=== PATIENT | female | born 1985 | race Hispanic/Latino ===

== ENCOUNTER 2023-12-25 07:00 | Inpatient (IN) | payer OTHER, SELFPAY ==
--- NOTE | 2023-12-25 08:00 | RAD REPORT ---
EXAM DESCRIPTION: RAD - Chest Single View - 12/25/2023 7:48 am CLINICAL HISTORY: DYSPNEA Chest pain. COMPARISON: No comparisons FINDINGS: Portable technique limits examination quality. Interstitial markings are mildly prominent which may indicate viral infection or mild interstitial pu lmonary edema. The heart is upper limit of normal in size. No displaced fractures.
[2023-12-25] MEDS ORDERED: AMLODIPINE 10 MG TAB ONE (08:03)
[2023-12-25 08:08] LABS: Absolute Basophils 0.1 K/uL (0-0.5); Absolute Eosinophils 0.1 K/uL (0-0.5); Absolute Lymphocytes (CBC) 2.6 K/uL (0.7-4.9); Absolute Monocytes 0.8 K/uL (0.1-1.3); Absolute Neutrophil 8.3 K/uL (1.8-8.0); Basophils % 0.5 % (0-1.3); Eosinophils % 1.1 % (0-4.4); Hematocrit 32.8 % (36.0-45.0); Hemoglobin 10.3 g/dL (12.0-15.0); Lymphocytes % 21.8 % (15.3-44.8); MCH 26.3 pg (27.0-35.0); MCHC 31.4 g/dL (32.0-36.0); MCV 83.7 fL (80-100); MPV 7.8 fL (7.6-11.3); Monocytes % 6.4 % (3.3-12.3); Neutrophils % 70.2 % (41.7-73.7); Platelets 325 thou/uL (152-406); RBC Red Blood Cell Count 3.93 M/uL (3.86-4.86)
[2023-12-25 08:26] LABS: ALT/SGPT 28 U/L (13-56); AST/SGOT 22 U/L (15-37); Albumin/Globulin Ratio 0.8 (1.1-1.8); Alkaline Phosphatase 88 U/L (45-117); Anion Gap 7.6 mEq/L (5.0-15.0); BUN Blood Urea Nitrogen 14 mg/dL (7-18); Bicarbonate 29 mEq/L (21-32); Bilirubin Total 0.3 mg/dL (0.2-1.0); Glomerular Filtration Rate 91 ml/min (=/>90); Glucose Level 123 mg/dL (74-106); NT PRO-BNP 1043 pg/mL (<125); Potassium 3.6 mEq/L (3.5-5.1); Sodium Level 137 mEq/L (136-145); Troponin High Sensitivity 23.8 pg/mL (<58.9)
[2023-12-25 08:28] LABS: Bilirubin Direct < 0.2 mg/dL (0-0.2); Bilirubin Indirect, Calculated 0.1 mg/dL (0.2-0.8)
[2023-12-25] MEDS ORDERED: FUROSEMIDE 40 MG/4 ML VIAL ONE (08:38)
--- NOTE | 2023-12-25 08:52 | ER ---
Nurse's Notes [facility] Name: Robbi Alsotn Age: 38 yrs Sex: Female : 1985 Arrival Date: 12/25/2023 Time: 07:00 Bed 15 Private MD: Diagnosis: Unspecified combined systolic (congestive) and diastolic (congestive) heart failure;Essential (primary) hypertension;Acute pulmonary edema;Dyspnea, unspecified Presentation: 12/24 07:17 Chief complaint: Patient states: she has been having shortness of breath for three days ap3 with a headache. patient states that she has been having continued shortness of breath but only at night previously, however now it has been going on during day and night. Coronavirus screen: At this time, the client does not indicate any symptoms associated with coronavirus-19. Ebola Screen: No symptoms or risks identified at this time. Initial Sepsis Screen: Does the patient meet any 2 criteria? RR > 20 per min. Does the patient have a suspected source of infection? No. Patient's initial sepsis screen is negative. Risk Assessment: Do you want to hurt yourself or someone else? Patient reports no desire to harm self or others. Onset of symptoms is unknown. 07:17 Method Of Arrival: Ambulatory ap3 07:17 Acuity: INDY 2 ap3 Triage Assessment: 07:23 General: Appears comfortable, Behavior is calm, cooperative, appropriate for age. Pain: ap3 Denies pain. Neuro: Level of Consciousness is awake, alert, obeys commands, Oriented to person, place, time, situation, Appropriate for age Speech is normal. Neuro: Reports headache. Cardiovascular: Patient's skin is warm and dry. Respiratory: Reports shortness of breath cough that is Airway is patent Respiratory effort is even, unlabored, Respiratory pattern is regular, symmetrical, Onset: The symptoms/episode began/occurred at an unknown time. 09:04 Respiratory: the patient has mild shortness of breath. ph Historical: - Allergies: 07:20 No Known Allergies; ap3 - Home Meds: 07:20 metoprolol [Active]; spironolactone 100 mg Oral tablet [Active]; valsartan 320 mg oral ap3 tablet [Active]; amlodipine 10 mg tablet [Active]; Metformin Oral [Active]; - PMHx: 07:20 Hypertensive disorder; Diabetes mellitus; ap3 - Immunization history:: Client reports receiving the 2nd dose of the Covid vaccine. - Infectious Disease History:: Denies. - Social history:: Smoking status: Patient denies any tobacco usage or history of. - Family history:: not pertinent. - Hospitalizations: : No recent hospitalization is reported. Screenin:25 Abuse screen: Denies threats or abuse. Nutritional screening: No deficits noted. ap3 Tuberculosis screening: No symptoms or risk factors identified. 09:04 [facility] ED Fall Risk Assessment (Adult) History of falling in the last 3 months, ph including since admission No falls in past 3 months (0 pts) Confusion or Disorientation No (0 pts) Intoxicated or Sedated No (0 pts) Impaired Gait No (0 pts) Mobility Assist Device Used No (0 pt) Altered Elimination Score/Fall Risk Level 0 - 2 = Low Risk Oriented to surroundings, Maintained a safe environment, Hourly rounding (assess needs \T\ fall precautionary measures) done. Assessment: 08:15 General: Appears in no apparent distress. Behavior is calm, cooperative, appropriate ph for age, Denies fever, feeling ill. Pain: Denies pain. Neuro: Level of Consciousness is awake, alert, obeys commands, Oriented to person, place, time, situation. Cardiovascular: Reports shortness of breath, Capillary refill < 3 seconds in bilateral fingers Patient's skin is warm and dry. Rhythm is sinus rhythm. Respiratory: Reports shortness of breath at rest on exertion Airway is patent Respiratory effort is even, unlabored, Respiratory pattern is tachypnea Breath sounds are coarse bilaterally. GI: No signs and/or symptoms were reported involving the gastrointestinal system. Derm: Skin is pink, warm \T\ dry. Vital Signs: 07:17 BP 196 / 128; Pulse 104; Resp 23; Temp 98.3; Pulse Ox 99% on R/A; Weight 107.05 kg; ap3 Height 5 ft. 1 in. ; Pain 0/10; 09:03 Pulse 87; Resp 19; Temp 98; Pulse Ox 98% on R/A; ph 09:11 BP 169 / 115; ph 07:17 Body Mass Index 44.59 (107.05 kg, 154.94 cm) ap3 07:17 Pain Scale: Adult ap3 ED Course: 07:10 Patient arrived in ED. em1 07:11 Vipin Canales MD is Attending Physician. rn 07:18 Ada Ellington, RN is Primary Nurse. ph 07:20 Triage completed. ap3 07:24 Arm band placed on Patient placed in an exam room, on a stretcher. ph 07:24 Patient has correct armband on for positive identification. Bed in low position. Call ap3 light in reach. Side rails up X 1. Adult w/ patient. 07:49 EKG done, by ED staff, reviewed by Vipin Canales MD. em1 07:50 XRAY Chest (1 view) In Process Unspecified. EDMS 08:00 Initial lab(s) drawn, by me, sent to lab. Inserted saline lock: 20 gauge in right ph antecubital area, using aseptic technique. Blood collected. Flushed with 10 mL NS. 08:51 Chris Mitchell MD is Hospitalizing Provider. rn 13:00 No provider procedures requiring assistance completed. Patient admitted, IV remains in ph place. Administered Medications: 08:14 Drug: amLODIPine PO 10 mg PO once Route: PO; ph 09:00 Follow up: Response: No adverse reaction ph 09:01 Drug: Furosemide IVP 40 mg IVP once; give over 2 minutes Route: IVP; Site: right ph antecubital; 09:30 Follow up: Response: No adverse reaction ph Medication: 09:04 VIS not applicable for this client. ph Outcome: 08:52 Decision to Hospitalize by Provider. rn 13:24 Patient left the ED. ph 13:24 Admitted to ICU accompanied by nurse, family with patient, via stretcher, room 3, on ph monitor, with chart, Report called to GENE Kan 13:24 Condition: stable 13:24 Instructed on the need for admit, Signatures: Dispatcher [employer] EDMO Vipin Canales MD MD rn Martinez, Eric em1 Ada Ellington, GENE RN [facility] Center[facility]ef[facility] corbin RN RN ap3
--- NOTE | 2023-12-25 08:53 | EDPHYS ---
Physician Documentation [facility] Name: Robbi Alston Age: 38 yrs Sex: Female : 1985 Arrival Date: 12/25/2023 Time: 07:00 Bed 15 Private MD: ED Physician Vipin Canales HPI: 12/24 08:49 This 38 yrs old Female presents to ER via Ambulatory with complaints of rn Shortness Of Breath. 08:49 The patient has shortness of breath at rest, with light activity. Onset: The rn symptoms/episode began/occurred 1 month(s) ago. The patient's shortness of breath is aggravated by exertion, light activity, supine position, walking, is alleviated by rest. Severity of symptoms: At their worst the symptoms were moderate in the emergency department the symptoms are unchanged. The patient has experienced similar episodes in the past. Patient reports several months of shortness of breath, orthopnea, dyspnea on exertion. Worse over the last week or so. No fever. Does not feel ill. Reports swelling to bilateral lower extremities. Has been avoiding taking her stairs at home due to dyspnea. Sleep sitting up. Has hypertension and takes 3 different medication. Did not take her medication this morning.. Historical: - Allergies: 07:20 No Known Allergies; ap3 - Home Meds: 07:20 metoprolol [Active]; spironolactone 100 mg Oral tablet [Active]; valsartan 320 mg oral ap3 tablet [Active]; amlodipine 10 mg tablet [Active]; Metformin Oral [Active]; - PMHx: 07:20 Hypertensive disorder; Diabetes mellitus; ap3 - Immunization history:: Client reports receiving the 2nd dose of the Covid vaccine. - Infectious Disease History:: Denies. - Social history:: Smoking status: Patient denies any tobacco usage or history of. - Family history:: not pertinent. - Hospitalizations: : No recent hospitalization is reported. ROS: 08:49 Constitutional: Negative for fever, chills, and weight loss, Cardiovascular: Negative rn for chest pain, positive for edema Respiratory: Positive for shortness of breath Abdomen/GI: Negative for abdominal pain, nausea, vomiting, diarrhea, and constipation, MS/Extremity: Positive for lower extremity swelling Skin: Negative for injury, rash, and discoloration, Neuro: Negative for headache, weakness, numbness, tingling, and seizure, Exam: 08:49 Constitutional: This is a well developed, well nourished patient who is awake, alert, rn mild tachypnea Cardiovascular: Tachycardic, regular. No pulse deficits. Respiratory: Mild tachypnea, diminished breath sounds at bases, no wheeze Abdomen/GI: Soft, nontender MS/ Extremity: 2+ pitting edema bilateral lower extremities. Pulses equal, no cyanosis 10:56 ECG was reviewed by the Attending Physician. rn Vital Signs: 07:17 BP 196 / 128; Pulse 104; Resp 23; Temp 98.3; Pulse Ox 99% on R/A; Weight 107.05 kg; ap3 Height 5 ft. 1 in. ; Pain 0/10; 09:03 Pulse 87; Resp 19; Temp 98; Pulse Ox 98% on R/A; ph 09:11 BP 169 / 115; ph 07:17 Body Mass Index 44.59 (107.05 kg, 154.94 cm) ap3 07:17 Pain Scale: Adult ap3 MDM: 07:11 Patient medically screened. rn 08:49 Differential diagnosis: Anemia Anxiety Reaction CHF exacerbation, Pneumothorax rn Psychogenic pulmonary edema. Data reviewed: vital signs, nurses notes, lab test result(s), EKG, radiologic studies, plain films, and as a result, I will admit patient. Consideration of Admission/Observation Patient was admitted/placed on observation. Escalation of care including admission/observation considered. Counseling: I had a detailed discussion with the patient and/or guardian regarding the historical points, exam findings, and any diagnostic results supporting the discharge/admit diagnosis, lab results, radiology results, the need for further work-up and treatment in the hospital. Response to treatment: the patient's symptoms have mildly improved after treatment, and as a result, I will admit patient. 12/24 07:33 Order name: Basic Metabolic Panel; Complete Time: 08:37 rn 12/24 07:33 Order name: CBC with Diff; Complete Time: 08:17 rn 12/24 07:33 Order name: LFT's; Complete Time: 08:37 rn 08 07:33 Order name: NT PRO-BNP; Complete Time: 08:37 rn 12/24 07:33 Order name: Troponin HS; Complete Time: 08:37 rn 12/24 07:33 Order name: XRAY Chest (1 view); Complete Time: 08:02 rn 12/24 11:56 Order name: US; Complete Time: 12:00 EDMS 12/24 07:33 Order name: EKG; Complete Time: 07:34 rn 12/24 10:38 Order name: CONS Physician Consult EDMS 12/24 07:33 Order name: Cardiac monitoring; Complete Time: 07:49 rn 12/24 07:33 Order name: EKG - Nurse/Tech; Complete Time: 07:49 rn 12/24 07:33 Order name: IV Saline Lock; Complete Time: 08:15 rn 12/24 07:33 Order name: Labs collected and sent; Complete Time: 08:15 rn 12/24 07:33 Order name: O2 Per Protocol; Complete Time: 08:15 rn 12/24 07:33 Order name: O2 Sat Monitoring; Complete Time: 08:15 rn EC:56 Rate is 93 beats/min. Rhythm is regular. QRS Peak is Normal. IL interval is normal. QRS rn interval is normal. QT interval is normal. No Q waves. T waves are Normal. No ST changes noted. Clinical impression: Normal ECG. Interpreted by me. Reviewed by me. Administered Medications: 08:14 Drug: amLODIPine PO 10 mg PO once Route: PO; ph 09:00 Follow up: Response: No adverse reaction ph 09:01 Drug: Furosemide IVP 40 mg IVP once; give over 2 minutes Route: IVP; Site: right ph antecubital; 09:30 Follow up: Response: No adverse reaction ph Disposition Summary: 12/25/23 08:52 Hospitalization Ordered Notes: Hospitalization Status: Inpatient Admission rn Provider: Chris Mitchell rn Condition: Stable rn Problem: an ongoing problem rn Symptoms: have improved rn Bed/Room Type: Standard rn Location: Intensive Care Unit(12/25/23 11:47) bd Room Assignment: 3-(12/25/23 11:47) bd Diagnosis - Unspecified combined systolic (congestive) and diastolic (congestive) heart failure rn - Essential (primary) hypertension rn - Acute pulmonary edema rn - Dyspnea, unspecified rn Forms: - Medication Reconciliation Form rn - SBAR form rn - Leadership Thank You Letter rn Signatures: Dispatcher [employer] [facility] Jeny Trevino Roman, MD MD rn Hall, Patricia, RN RN ph Josefina Lea RN RN ap3 Corrections: (The following items were deleted from the chart) 08:52 rn bd 08:52 Telemetry/MedSurg (Inpatient) shane 10:[address] [place] [address]
--- NOTE | 2023-12-25 10:34 | P.HP ---
Certification for Inpatient Patient admitted to: Inpatient With expected LOS: <2 Midnights <Patience Tejada - Last Filed: 12/25/23 12:33> Patient History Date of Service: 12/25/23 Reason for admission: Hypertensive urgency History of Present Illness: 38-year-old female with a past medical history of hypertension, diabetes, presents to the emergency room with shortness of breath. She reports shortness of breath is worse while lying flat, worse with exertion. She reports bilateral lower extremity swelling. She reports symptoms worse over the last week. She reports not taking her blood pressure medication this morning. No reported chest pain, abdominal pain, dizziness, headache ER evaluation BP 196 / 128; Pulse 104; Resp 23; Temp 98.3; Pulse Ox 99% on R/A; Weight 107.05 kg; Height 5 ft. 1 in. ; Pain 0/10; chest x-ray Interstitial markings are mildly prominent which may indicate viral infection or mild interstitial pulmonary edema. The heart is upper limit of normal in size. No displaced fractures Plan to admit to ICU on a Cardene drip, permissive hypertension for acute unspecified combined systolic (congestive) and diastolic (congestive) heart failure,- Essential (primary) hypertension, - Acute pulmonary edema, Dyspnea, unspecified Home medications list reviewed: Yes - Past Medical/Surgical History Diabetic: Yes -: Hypertensive urgency -: Diabetes -: Tubal - Social History Smoking Status: Never smoker Alcohol use: No CD- Drugs: No Caffeine use: Yes Place of Residence: Home <StevanmarianoPatience - Last Filed: 12/25/23 12:33> Date of Service: 12/25/23 <Chris Mitchell - Last Filed: 12/26/23 03:53> Review of Systems 10-point ROS is otherwise unremarkable <StevanPatience quintana - Last Filed: 12/25/23 12:33> Physical Examination - Physical Exam General: Alert, In no apparent distress, Oriented x3 HEENT: Atraumatic, Normocephalic Neck: 2+ carotid pulse no bruit, JVD not distended Respiratory: Normal air movement, Crackles/rales Cardiovascular: Normal pulses, Regular rate/rhythm, Edema (+2 lower extremity edema) Capillary refill: <2 Seconds Gastrointestinal: Normal bowel sounds, Soft and benign, Other (Obese abdomen) Musculoskeletal: No clubbing, No swelling Integumentary: No breakdown, No significant lesion Neurological: Normal speech, Normal strength at 5/5 x4 extr, Cranial nerves 3-12 intact - Studies Laboratory Data (last 24 hrs) 12/25/23 12/25/23 08:00 08:00 WBC 11.80 H Hgb 10.3 L Hct 32.8 L Plt Count 325 Sodium 137 Potassium 3.6 BUN 14 Creatinine 0.83 Glucose 123 H Total Bilirubin 0.3 AST 22 ALT 28 Alkaline Phosphatase 88 <Patience Tejada - Last Filed: 12/25/23 12:33> - Studies Laboratory Data (last 24 hrs) 12/25/23 12/25/23 08:00 08:00 WBC 11.80 H Hgb 10.3 L Hct 32.8 L Plt Count 325 Sodium 137 Potassium 3.6 BUN 14 Creatinine 0.83 Glucose 123 H Total Bilirubin 0.3 AST 22 ALT 28 Alkaline Phosphatase 88 <Chris Mitchell - Last Filed: 12/26/23 03:53> Assessment and Plan - Plan Assessment plan Acute heart failure Pulmonary edema Lower extremity edema Acute hypoxic respiratory failure secondary to decompensated heart failure Cardiology consulted, telemetry , Echo ordered Permissive hypertension, Cardene drip MAP of 110 diuretics, Nephrology consult eval for renal cause of hypertension, renal US MRI of the brain ER evaluation BP 196 / 128; Pulse 104; Resp 23; Temp 98.3; Pulse Ox 99% on R/A; Weight 107.05 kg; Height 5 ft. 1 in. ; Pain 0/10; chest x-ray Interstitial markings are mildly prominent which may indicate viral infection or mild interstitial pulmonary edema. The heart is upper limit of normal in size. No displaced fractures hypertension diabetes Resume home meds DVT SCDs Full code Cardiac diet Disposition Home independent prior Discharge Plan: Home - Advance Directives Does patient have a Living Will: No Does patient have a Durable POA for Healthcare: No - Code Status/Comfort Care Code Status: Full Code Critical Care: Yes Time Spent Managing Pts Care (In Minutes): 55 <Patience Tejada - Last Filed: 12/25/23 12:33> Date of Service: 12/25/23 Patient is a 38-year-old female who presents to the hospital with shortness of breath and lower extremity edema. Patient has also been complaining of a headache as well as paresthesias. Patient's blood pressures been elevated up to 190s /120s for many months. Patient has not been taking care of her blood pressure for quite a while. At this time, patient will be admitted to the hospital for further workup. She patient is morbidly obese with a BMI greater than 40. My concern is that she may be diagnosed with intracranial hypertension which is causing significant elevation in her blood pressure. Will need to reduce her blood pressure gradually at this time. I will also do imaging studies to further evaluate the brain for possibly PRES syndrome and will plan to do a lumbar puncture to monitor opening pressure. This could be the cause of her hypertensive emergency. Will also get an echocardiogram to further evaluate her cardiac status. Spoke with with SHRUTI regarding patient's clinical picture after evaluating and examining the patient independently. I performed a substantial part of the MDM during this patient's care today. I personally made or approved the documented management plan and acknowledge its risk of complications. I agree with the findings and documentation provided in the SHRUTI's notes. <Chris Mitchell - Last Filed: 12/26/23 03:53>
[2023-12-25] MEDS: FUROSEMIDE 40 MG/4 ML VIAL IV SCH ×2 (11:00→17:02)
[2023-12-25] MEDS: HYDRALAZINE HCL 20 MG/ML VIAL IV ONE (11:15)
--- NOTE | 2023-12-25 11:55 | RAD REPORT ---
EXAM DESCRIPTION: US - Renal Ultrasound-Complete - 12/25/2023 11:37 am CLINICAL HISTORY: HTN urgency COMPARISON: No comparisons FINDINGS: Both kidneys are normal in size, shape and echotexture. The right kidney measures 12.0 x 6.3 x 3.4 cm. No hydronephrosis, focal mass or perinephric fluid. The left kidney measures 11.7 x 5.6 x 6.0 cm. No hydronephrosis, focal mass or perinephric fluid. The urinary bladder is incompletely distended without gross abnormality seen. IMPRESSION: Unremarkable renal sonogram.
[2023-12-25] MEDS ORDERED: HYDRALAZINE HCL 20 MG/ML VIAL ONE (12:00)
[2023-12-25] MEDS ORDERED: Nicardipine/NS 25 MG/250 ML KIT IV ONE (12:18)
[2023-12-25] MEDS: Nicardipine/NS 25 MG/250 ML KIT IV SCH (12:51)
--- NOTE | 2023-12-25 14:21 | P.CNS ---
Date of Consult: 12/25/23 Chief Complaint: Hypertensive urgency History of Present Illness: Patient with PMH of HTN, presented with worsening SOB for the last month that got worse over the last few days, denies chest pain, no palpitations, no dizzy spells, no syncope. Allergies No Known Allergies Allergy (Unverified 12/25/23 13:39) Home medications list reviewed: Yes Home Medications: Amlodipine Besylate [Norvasc] 10 mg PO DAILY 12/25/23 Metoprolol Succinate [Toprol Xl] 50 mg PO DAILY 12/25/23 Spironolactone [Aldactone] 100 mg PO DAILY 12/25/23 Valsartan/Hydrochlorothiazide [Valsartan-Hctz 320-25 mg Tab] 1 each PO DAILY 12/25/23 - Past Medical/Surgical History Diabetic: Yes -: Hypertensive urgency -: Diabetes -: high cholesterol -: Tubal - Family History Mother History Unknown: Yes Medical History: Hypertension, Lung disease, Diabetes - Social History Alcohol use: Yes CD- Drugs: No Caffeine use: Yes Place of Residence: Home Review of Systems 10-point ROS is otherwise unremarkable Physical Examination Temp Pulse Resp BP Pulse Ox 98 F 98 H 19 182/116 H 12/25/23 09:03 12/25/23 12:51 12/25/23 09:03 12/25/23 12:51 General: Alert, In no apparent distress HEENT: Atraumatic, PERRLA, Mucous membr. moist/pink, EOMI, Sclerae nonicteric Neck: Supple, 2+ carotid pulse no bruit, No LAD, Without JVD or thyroid abnormality Respiratory: Clear to auscultation bilaterally, Normal air movement Cardiovascular: Regular rate/rhythm, Normal S1 S2 Gastrointestinal: Normal bowel sounds, No tenderness Musculoskeletal: No tenderness Integumentary: No rashes Neurological: Normal gait, Normal speech, Normal tone, Normal affect Lymphatics: No axilla or inguinal lymphadenopathy Laboratory Data (last 24 hrs) 12/25/23 12/25/23 08:00 08:00 WBC 11.80 H Hgb 10.3 L Hct 32.8 L Plt Count 325 Sodium 137 Potassium 3.6 BUN 14 Creatinine 0.83 Glucose 123 H Total Bilirubin 0.3 AST 22 ALT 28 Alkaline Phosphatase 88 - Problems (1) Hypertensive urgency Current Visit: Yes Status: Acute Plan: agree with cardene drip (titrate to goal BP less than 160 mmHg systolic) resume patient home medications Norvasc 10 mg daily switch Torpol to Coreg 25 mg po BID continue aldactone continue valsartan/hctz (2) SOB (shortness of breath) Current Visit: Yes Status: Acute Plan: agree with IV diuresis monitor input and output monitor and correct electrolytes get Echo
[2023-12-25] MEDS ORDERED: ALPRAZOLAM 0.25 MG TABLET PO PRN (14:48)
[2023-12-25] MEDS ORDERED: ONDANSETRON 4 MG/2 ML VIAL IV PRN (14:48)
[2023-12-25] MEDS: METOPROLOL TARTRATE 5 MG/5 ML INJ IV STA (14:51)
--- NOTE | 2023-12-25 15:32 | RAD REPORT ---
EXAM DESCRIPTION: MRI - Brain Wo Cont - 12/25/2023 3:24 pm CLINICAL HISTORY: HTN urgency COMPARISON: No comparisons TECHNIQUE: Sagittal T1-weighted images were obtained along with PD/heavily T2-weighted and T2-FLAIR images. Axial DWI and ADC mapping sequences were also obtained along with coronal heavily T2-weighted images were obtained. FINDINGS: No intracranial hemorrhage, mass or acute infarction. There is no edema or shift of midlin e structures. No extra-axial fluid collections. Signal voids are seen as a normal finding in the gary r intracranial vessels. No significant white matter disease. Mastoid air cells and paranasal sinuses are clear. IMPRESSION: Unremarkable noncontrast brain MRI. No acute infarct identified.
[2023-12-25] MEDS: INSULIN REGULAR (HUMAN) 100 UNIT/ML SQ SCH (16:30)
[2023-12-25] MEDS: ACETAMINOPHEN 500 MG TAB PO PRN (17:01)
[2023-12-25] MEDS: LOSARTAN POTASSIUM 50 MG TABLET PO ONE (18:35)
--- NOTE | 2023-12-25 18:38 | P.CNS ---
Date of Consult: 12/25/23 Reason for Consult: HTN Requesting Physician: Chris Mitchell Chief Complaint: Hypertensive urgency History of Present Illness: 38-year-old female with a past medical history of hypertension, diabetes, presents to the emergency room with shortness of breath. She reports shortness of breath is worse while lying flat, worse with exertion. She reports bilateral lower extremity swelling. She reports symptoms worse over the last week. She reports not taking her blood pressure medication this morning. No reported chest pain, abdominal pain, dizziness, headache ER evaluation BP 196 / 128; Pulse 104; Resp 23; Temp 98.3; Pulse Ox 99% on R/A; Weight 107.05 kg; Height 5 ft. 1 in. ; Pain 0/10; chest x-ray Interstitial markings are mildly prominent which may indicate viral infection or mild interstitial pulmonary edema. The he art is upper limit of normal in size. No displaced fractures Plan to admit to ICU on a Cardene drip, permissive hypertension for acute unspecified combined systolic (congestive) and diastolic (congestive) heart failure,- Essential (primary) hypertension, - Acute pulmonary edema, Dyspnea, unspecified [id number] 08:49 This 38 yrs old Female presents to ER via Ambulatory with complaints of rn Shortness Of Breath. 08:49 The patient has shortness of breath at rest, with light activity. Onset: The rn symptoms/episode began/occurred 1 month(s) ago. The patient's shortness of breath is aggravated by exertion, light activity, supine position, walking, is alleviated by rest. Severity of symptoms: At their worst the symptoms were moderate in the emergency department the symptoms are unchanged. The patient has experienced similar episodes in the past. Patient reports several months of shortness of breath, orthopnea, dyspnea on exertion. Worse over the last week or so. No fever. Does not feel ill. Reports swelling to bilateral lower extremities. Has been avoiding taking her stairs at home due to dyspnea. Sleep sitting up. Has hypertension and takes 3 different medication. Did not take her medication this morning.. Allergies No Known Allergies Allergy (Unverified 12/25/23 13:39) Home medications list reviewed: Yes Home Medications: Amlodipine Besylate [Norvasc] 10 mg PO DAILY 12/25/23 Metoprolol Succinate [Toprol Xl] 50 mg PO DAILY 12/25/23 Spironolactone [Aldactone] 100 mg PO DAILY 12/25/23 Valsartan/Hydrochlorothiazide [Valsartan-Hctz 320-25 mg Tab] 1 each PO DAILY 12/25/23 - Past Medical/Surgical History Diabetic: Yes -: Hypertensive urgency -: Diabetes -: high cholesterol -: Tubal - Family History Mother History Unknown: Yes Medical History: Hypertension, Lung disease, Diabetes - Social History Alcohol use: Yes CD- Drugs: No Caffeine use: Yes Place of Residence: Home Review of Systems 10-point ROS is otherwise unremarkable Respiratory: SOB with Excertion Cardiovascular: Edema Physical Examination Temp Pulse Resp BP Pulse Ox 97.7 F 92 H 18 152/92 H 99 12/25/23 14:00 12/25/23 17:00 12/25/23 17:00 12/25/23 17:02 12/25/23 17:00 General: In no apparent distress, Oriented x3, Cooperative HEENT: Atraumatic Neck: Supple Respiratory: Clear to auscultation bilaterally Cardiovascular: Regular rate/rhythm, Edema Gastrointestinal: Soft and benign, Non-distended Musculoskeletal: No clubbing, No contractures Integumentary: No rashes, No cyanosis Neurological: Normal speech Laboratory Data (last 24 hrs) 12/25/23 12/25/23 08:00 08:00 WBC 11.80 H Hgb 10.3 L Hct 32.8 L Plt Count 325 Sodium 137 Potassium 3.6 BUN 14 Creatinine 0.83 Glucose 123 H Total Bilirubin 0.3 AST 22 ALT 28 Alkaline Phosphatase 88 Imagings Data: [address] EXAM DESCRIPTION: RAD - Chest Single View - 12/25/2023 7:48 am CLINICAL HISTORY: DYSPNEA Chest pain. COMPARISON: No comparisons FINDINGS: Portable technique limits examination quality. Interstitial markings are mildly prominent which may indicate viral infection or mild interstitial pulmonary edema. The heart is upper limit of normal in size. No displaced fractures. [address] EXAM DESCRIPTION: US - Renal Ultrasound-Complete - 12/25/2023 11:37 am CLINICAL HISTORY: HTN urgency COMPARISON: No comparisons FINDINGS: Both kidneys are normal in size, shape and echotexture. The right kidney measures 12.0 x 6.3 x 3.4 cm. No hydronephrosis, focal mass or perinephric fluid. The left kidney measures 11.7 x 5.6 x 6.0 cm. No hydronephrosis, focal mass or perinephric fluid. The urinary bladder is incompletely distended without gross abnormality seen. IMPRESSION: Unremarkable renal sonogram. Conclusions/Impression: Hypokalemia -Replete potassium -Start Spironolactone HTN Urgency -Metoprolol X1 -Start Coreg BID -Cardene gtt prn Peripheral Edema -Agree with Lasix -Start Spironolactone Anemia in chronic illness -Monitor H&H Morbid Obesity -Recommend calorie restriction Case reviewed with hospitalist team Thank you kindly for the consultation
[2023-12-25] MEDS: METOPROLOL XL 50 MG TAB PO ONE (18:39)
[2023-12-25] MEDS: POTASSIUM 25 MEQ EFFERV TAB PO ONE (20:46)
[2023-12-26 00:10] LABS: Specific Gravity 1.016 (1.005-1.030); Urine Bacteria <20 /HPF (<20); Urine Bilirubin NEGATIVE (Negative); Urine Blood Negative (Negative); Urine Clarity Extremely Turbid (Clear); Urine Color Light-Yellow (Yellow); Urine Culture Reflex Order NOT NEEDED; Urine Glucose NEGATIVE (Negative); Urine Ketones NEGATIVE (Negative); Urine Microscopic Reflex YN ORDER UMIC; Urine Mucus Slight /HPF (None Seen); Urine Nitrite NEGATIVE (Negative); Urine Protein TRACE (Negative); Urine RBC None Seen /HPF (None Seen); Urine Urobilinogen Normal (Normal); Urine WBC <5 /HPF (<5); Urine pH 6.5 (5.0-7.0)
[2023-12-26] MEDS: HYDRALAZINE HCL 20 MG/ML VIAL IV PRN (04:04)
[2023-12-26 05:47] LABS: Absolute Eosinophils 0.1 K/uL (0-0.5); Absolute Lymphocytes (CBC) 2.5 K/uL (0.7-4.9); Absolute Monocytes 0.6 K/uL (0.1-1.3); Absolute Neutrophil 8.3 K/uL (1.8-8.0); Basophils % 0.4 % (0-1.3); Eosinophils % 1.2 % (0-4.4); Hematocrit 36.9 % (36.0-45.0); Hemoglobin 11.6 g/dL (12.0-15.0); MCH 26.3 pg (27.0-35.0); MCHC 31.5 g/dL (32.0-36.0); MCV 83.5 fL (80-100); MPV 7.9 fL (7.6-11.3); Monocytes % 5.1 % (3.3-12.3); Neutrophils % 71.3 % (41.7-73.7); Platelets 396 thou/uL (152-406); RBC Red Blood Cell Count 4.42 M/uL (3.86-4.86); Red Cell Distribution Width 19.5 % (12.1-15.2)
[2023-12-26 06:01] LABS: Anion Gap 8.3 mEq/L (5.0-15.0); Phosphorus 3.3 mg/dL (2.5-4.9); Potassium 3.3 mEq/L (3.5-5.1)
[2023-12-26] MEDS: POTASSIUM CL SA 10 MEQ TAB PO ONE (06:23)
[2023-12-26] MEDS: carvediloL 25 MG TAB PO SCH (06:23)
--- NOTE | 2023-12-26 06:42 | P.DS ---
Admission Date: 12/25/23 Discharge Date: 12/27/23 Disposition: ROUTINE DISCHARGE Discharge Condition: GOOD Reason for Admission: Hypertensive urgency Brief History of Present Illness: 38-year-old female with a past medical history of hypertension, diabetes, presents to the emergency room with shortness of breath. She reports shortness of breath is worse while lying flat, worse with exertion. She reports bilateral lower extremity swelling. She reports symptoms worse over the last week. She reports not taking her blood pressure medication this morning. No reported chest pain, abdominal pain, dizziness, headache ER evaluation BP 196 / 128; Pulse 104; Resp 23; Temp 98.3; Pulse Ox 99% on R/A; Weight 107.05 kg; Height 5 ft. 1 in. ; Pain 0/10; chest x-ray Interstitial markings are mildly prominent which may indicate viral infection or mild interstitial pulmonary edema. The heart is upper limit of normal in size. No displaced fractures Plan to admit to ICU on a Cardene drip, permissive hypertension for acute unspecified combined systolic (congestive) and diastolic (congestive) heart failure,- Essential (primary) hypertension, - Acute pulmonary edema, Dyspnea, unspecified Physical Exam General: Alert, In no apparent distress, Oriented x3 HEENT: Atraumatic, Normocephalic Neck: 2+ carotid pulse no bruit, JVD not distended Respiratory: Normal air movement, Crackles/rales Cardiovascular: Normal pulses, Regular rate/rhythm, Edema (+2 lower extremity edema) Capillary refill: <2 Seconds Gastrointestinal: Normal bowel sounds, Soft and benign, Other (Obese abdomen) Musculoskeletal: No clubbing, No swelling Integumentary: No breakdown, No significant lesion Neurological: Normal speech, Normal strength at 5/5 x4 extr, Cranial nerves 3-12 intact Hospital Course: 38-year-old female with a past medical history of hypertension, diabetes, presents to the emergency room with shortness of breath. She reports shortness of breath is worse while lying flat, worse with exertion. She reports bilateral lower extremity swelling. She was evaluated by cardiology, noted to have hypertensive urgency, acute heart failure with pulmonary edema. Was admitted to ICU treated with a Cardene drip, transition to p.o. antihypertensives. Treated with aggressive diuresis. Stable, tolerating diet, follow-up with cardiology after discharge. Discharged home on Coreg 25 twice daily P.o. diuretics, Aldactone 100 mg daily Lasix 40 mg daily Lumbar puncture Opening pressure measured 19 mm H2O. MRI of the brain unremarkable, no acute infarct identified. Renal ultrasound is unremarkable Echocardiogram mild left ventricular hypertrophy, EF 55 to 60%, mild mitral regurgitation, mild tricuspid regurgitation Continue home medicines as previously prescribed GOAL: Clear understanding of disease process INSTRUCTIONS: Physician Discharge Instructions: -follow-up with cardiology after discharge -Follow-up with PCP in 1 to 2 weeks -Please call Dr. Mitchell at [phone] if any questions regarding hospital stay -Please call nursing station at [phone] if any nursing or medication questions -Return to the emergency room if symptoms worsen Diet: ADA, low sodium Activity: Fall precautions Vital Signs/Physical Exam: Temp Pulse Resp BP Pulse Ox 97 F 85 14 155/91 H 98 12/26/23 04:00 12/26/23 06:23 12/26/23 06:00 12/26/23 06:23 12/26/23 06:00 Laboratory Data at Discharge: WBC 11.60 thou/uL (4.3-10.9) H 12/26/23 05:15 Hgb 11.6 g/dL (12.0-15.0) L D 12/26/23 05:15 Hct 36.9 % (36.0-45.0) 12/26/23 05:15 Plt Count 396 thou/uL (152-406) 12/26/23 05:15 Sodium 135 mEq/L (136-145) L 12/26/23 05:20 Potassium 3.3 mEq/L (3.5-5.1) L 12/26/23 05:20 BUN 15 mg/dL (7-18) 12/26/23 05:20 Creatinine 0.76 mg/dL (0.55-1.02) 12/26/23 05:20 Glucose 137 mg/dL (74-106) H 12/26/23 05:20 Phosphorus 3.3 mg/dL (2.5-4.9) 12/26/23 05:20 Magnesium 2.0 mg/dL (1.6-2.4) 12/26/23 05:20 Total Bilirubin 0.3 mg/dL (0.2-1.0) 12/25/23 08:00 AST 22 U/L (15-37) 12/25/23 08:00 ALT 28 U/L (13-56) 12/25/23 08:00 Alkaline Phosphatase 88 U/L (45-117) 12/25/23 08:00 Triglycerides 138 mg/dL (<150) 12/26/23 05:20 Cholesterol 216 mg/dL (<200) H 12/26/23 05:20 HDL Cholesterol 82 mg/dL (40-60) H 12/26/23 05:20 Cholesterol/HDL Ratio 2.63 12/26/23 05:20 Home Medications: Furosemide [Lasix] 40 mg PO DAILY #30 tab 12/26/23 Losartan Potassium [Cozaar*] 50 mg PO BID #60 tablet 12/26/23 Spironolactone [Aldactone*] 100 mg PO DAILY #30 tab 12/26/23 carvediloL [Coreg*] 25 mg PO BID 6AM 6PM #60 tab 12/26/23 New Medications: Spironolactone [Aldactone*] 100 mg PO DAILY #30 tab carvediloL [Coreg*] 25 mg PO BID 6AM 6PM #60 tab Losartan Potassium [Cozaar*] 50 mg PO BID #60 tablet Furosemide [Lasix] 40 mg PO DAILY #30 tab Physician Discharge Instructions: Pt is 38-year-old female with a past medical history of hypertension, diabetes, presents to the emergency room with shortness of breath. She reports shortness of breath is worse while lying flat, worse with exertion. She reports bilateral lower extremity swelling. She was evaluated by cardiology, noted to have hypertensive urgency, acute heart failure with pulmonary edema. Was admitted to ICU treated with a Cardene drip, transition to p.o. antihypertensives. Treated with aggressive diuresis. Stable, tolerating diet, follow-up with cardiology after discharge. L Discharged home on Coreg 25 twice daily p.o. diuretics, Lumbar puncture Opening pressure measured 19 mm H2O. MRI of the brain unremarkable, no acute infarct identified. Renal ultrasound is unremarkable Continue home medicines as previously prescribed GOAL: Clear understanding of disease process INSTRUCTIONS: Physician Discharge Instructions: -Follow-up with Cardiology after discharge -Follow-up with PCP in 1 to 2 weeks -Please call Dr. Mitchell at [phone] if any questions regarding hospital stay -Please call nursing station at [phone] if any nursing or medication questions -Return to the emergency room if symptoms worsen Diet: ADA, low sodium Activity: Fall precautions Followup: NONE,NONE [Primary Care Provider] - Time spent managing pt's care (in minutes): 45
[2023-12-26] MEDS ORDERED: CHLORTHALIDONE 25 MG TAB PO SCH (08:00)
[2023-12-26] MEDS: POTASSIUM 25 MEQ EFFERV TAB PO ONE (08:48)
[2023-12-26] MEDS: SPIRONOLACTONE 25 MG TABLET PO SCH (08:49)
--- NOTE | 2023-12-26 12:16 | P.PN ---
Subjective Date of Service: 12/26/23 Chief Complaint: Hypertensive urgency Subjective: No new changes, No C/O voiced, Tolerating diet, Ambulating, Improving Review of Systems 10-point ROS is otherwise unremarkable Physical Examination - Vital Signs Temperature: 97.6 F Blood Pressure: 138/94 Pulse: 78 Respirations: 16 Pulse Ox (%): 99 - Physical Exam General: Alert, In no apparent distress HEENT: Atraumatic, PERRLA, EOMI Neck: Supple, JVD not distended Respiratory: Clear to auscultation bilaterally, Normal air movement Cardiovascular: Regular rate/rhythm, Normal S1 S2 Gastrointestinal: Normal bowel sounds, No tenderness Musculoskeletal: No tenderness Integumentary: No rashes Neurological: Normal speech, Normal tone, Normal affect Lymphatics: No axilla or inguinal lymphadenopathy - Studies Medications List Reviewed: Yes Assessment And Plan - Current Problems (Diagnosis) (1) Hypertensive urgency Current Visit: Yes Status: Acute Plan: cardene drip is off as BP is better Coreg 25 mg po BID continue aldactone (2) SOB (shortness of breath) Current Visit: Yes Status: Acute Plan: agree with IV diuresis monitor input and output monitor and correct electrolytes get Echo
--- NOTE | 2023-12-26 12:27 | RAD REPORT ---
EXAM DESCRIPTION: RAD - Lumbar Puncture For Dx - 12/26/2023 12:15 pm CLINICAL HISTORY: Headaches. Concern for idiopathic intracranial hypertension. Hypertensive urgency. Evaluate opening pressure COMPARISON: None. TECHNIQUE: The procedure, risks and alternatives to the procedure were discussed with the patient in detail. After answering all questions, both oral and written consent were obtained. Time-out procedu re was performed. The patient was placed in an oblique prone position on the fluoroscopic table. The skin of the lower back was prepped and draped in the usual sterile fashion. After anesthetizing the skin and deeper sof t tissues with 1% lidocaine, a 22 gauge needle was advanced into the thecal sac at the right L3-4 lev el. Opening pressure measured 19 mm H2O. A total of 7.5 mL of clear CSF were collected and sent to the la b as ordered. At the conclusion of the procedure the needle was withdrawn and a sterile bandage placed over the pun cture site. The patient tolerated the procedure well without immediate complications. Post-procedure care and precaution instructions were discussed with the patient before the LP procedure. Fluoroscopy time: 0.3 minutes Radiation dose: 101.07 mGy IMPRESSION: Successful fluoroscopic guided lumbar puncture. All obtained fluid was sent to the lab f or studies requested by the referring physician.
--- NOTE | 2023-12-26 12:28 | RAD REPORT ---
EXAM DESCRIPTION: US - Abdomen Pelvis Scan US - 12/26/2023 12:26 am CLINICAL HISTORY: HTN urgency COMPARISON: No comparisons TECHNIQUE: Sonographic grayscale and color flow images of the kidneys were obtained. Spectral flow Doppler and color duplex imaging of the renal arteries was also obtained. FINDINGS: The bilateral kidneys are normal in size, the right measuring 10.8 cm and the left measuri ng 11.5 cm in length. Aortic velocity: 86.7 cm/second Right proximal renal artery: 51 cm/second Right mid renal artery: 57 cm/second Right distal renal artery: 41 cm/second Right renal arcuate artery resistive index: 0.64 Right renal artery / aorta ratio: 0.66 Left proximal renal artery: 77 cm/second Left mid renal artery: 63 cm/second Left distal renal artery: 69 cm/second Left renal arcuate artery resistive index: Not measured Left renal artery/aorta ratio: 0.89 Normal waveforms demonstrated within the bilateral renal arteries. The included liver demonstrates diffusely increased hepatic parenchymal echogenicity suggesting steat osis. IMPRESSION: No evidence of hemodynamically significant stenosis within the bilateral renal arteries. Incidentally noted diffuse hepatic steatosis.
--- NOTE | 2023-12-26 13:10 | EKG ---
Test Date: 2023-12-25 Test Time: 07:46:01 Machine Iii Coremaker: HALLEY MEASUREMENT RESULTS: Intervals: Rate: 93 KS: 138 QRSD: 74 QT: 368 QTc: 457 [place]: P: 64 [place]: 138 QRS: 23 T: 85 INTERPRETIVE STATEMENTS: Normal sinus rhythm Normal ECG No previous ECG available for comparison Electronically Signed On 12-26-23 13:05:52 CDT by Dayron Garcia
[2023-12-26 13:24] LABS: CSF Glucose 71 mg/dL (40-70)
[2023-12-26 13:59] LABS: Appearance CLEAR (CLEAR); Body Fluid Source CSF; Color of Supernate Not Xanthochromic (Not Xantho); Color of fluid Colorless (COLORLESS); Tube # #2
[2023-12-26 14:00] LABS: Body Fluid WBC 0 /mm^3
[2023-12-26 15:35] VITALS: BMI 25.7
--- NOTE | 2023-12-26 17:22 | P.PN ---
Date of Service: 12/26/23 subjective No reported chest pain, mild shortness of breath with exertion Plan to transition off Cardene drip, out of ICU, Review of Systems 10-point ROS is otherwise unremarkable Physical Exam vital signs Reviewed General: Alert, In no apparent distress, Oriented x3, afebrile HEENT: Atraumatic, Normocephalic Neck: 2+ carotid pulse no bruit, JVD not distended Respiratory: Normal air movement, Crackles/rales Cardiovascular: Normal pulses, Regular rate/rhythm, Edema (+2 lower extremity edema) Capillary refill: <2 Seconds Gastrointestinal: Normal bowel sounds, Soft and benign, Musculoskeletal: No clubbing, No swelling Integumentary: No breakdown, No significant lesion Neurological: Normal speech, Normal strength at 5/5 x4 extr, Cranial nerves 3-12 intact Assessment and Plan - Plan Assessment plan Hypertensive urgency Acute heart failure unknown baseline Pulmonary edema improved Lower extremity edema improved Acute hypoxic respiratory failure secondary to decompensated heart failure improved Cardiology consulted, telemetry , Echo ordered Permissive hypertension, Cardene drip MAP of 110 diuretics, Nephrology consult eval for renal cause of hypertension, renal US MRI of the brain ER evaluation BP 196 / 128; Pulse 104; Resp 23; Temp 98.3; Pulse Ox 99% on R/A; Weight 107.05 kg; Height 5 ft. 1 in. ; Pain 0/10; chest x-ray Interstitial markings are mildly prominent which may indicate viral infection or mild interstitial pulmonary edema. The heart is upper limit of normal in size. No displaced fractures hypertension diabetes Resume home meds DVT SCDs Full code Cardiac diet Disposition Home independent prior Discharge Plan: Home - Advance Directives Does patient have a Living Will: No Does patient have a Durable POA for Healthcare: No - Code Status/Comfort Care Code Status: Full Code Critical Care: Yes Time Spent Managing Pts Care (In Minutes): 45
[2023-12-26 20:19] VITALS: O2SAT 96
[2023-12-27 05:07] LABS: Absolute Basophils 0.1 K/uL (0-0.5); Absolute Eosinophils 0.1 K/uL (0-0.5); Absolute Lymphocytes (CBC) 2.7 K/uL (0.7-4.9); Absolute Monocytes 0.9 K/uL (0.1-1.3); Absolute Neutrophil 8.6 K/uL (1.8-8.0); Basophils % 0.6 % (0-1.3); Eosinophils % 1.1 % (0-4.4); Hematocrit 32.6 % (36.0-45.0); Hemoglobin 10.2 g/dL (12.0-15.0); Lymphocytes % 21.6 % (15.3-44.8); MCH 26.2 pg (27.0-35.0); MCHC 31.2 g/dL (32.0-36.0); Monocytes % 7.6 % (3.3-12.3); Neutrophils % 69.1 % (41.7-73.7); Platelets 358 thou/uL (152-406); RBC Red Blood Cell Count 3.88 M/uL (3.86-4.86); Red Cell Distribution Width 20.1 % (12.1-15.2)
[2023-12-27 05:30] LABS: Anion Gap 8.9 mEq/L (5.0-15.0); Magnesium 2.2 mg/dL (1.6-2.4); Potassium 3.9 mEq/L (3.5-5.1)
[2023-12-27 05:47] LABS: Anisocytosis 1+; Blood Morphology Comment NOTED (NOT SEEN); Platelet Estimate ADEQ; White Blood Cell Scan OK (OK)
--- NOTE | 2023-12-27 07:37 | ECHO ---
HEIGHT: 5 ft 1 in WEIGHT: 237 lb 0.6 oz DATE OF STUDY: 12/26/[address]: Patience Tejada [employer]ACHINE [employer]ER-Den 2-DIMENSIONAL: YES M.MODE: YES DOPPLER: YES COLOR FLOW: YES TDS: PORTABLE: DEFINITY: BUBBLE STUDY: DIAGNOSIS: CHRONIC CONGESTIVE HEART FAILURE CARDIAC HISTORY: CATHERIZATION: SURGERY: PROSTHETIC VALVE: PACEMAKER: MEASUREMENTS (cm) DIASTOLIC (NORMALS) SYSTOLIC (NORMALS) IVSd 1.3 (0.6-1.2) LA Diam 4.5 (1.9-4.0) LVEF 55-60% LVIDd 5.3 (3.5-5.7) LVIDs 3.5 (2.0-3.5) %FS 33% LVPWd 1.0 (0.6-1.2) Ao Diam 2.1 (2.0-3.7) 2 DIMENSIONAL ASSESSMENT: RIGHT ATRIUM: NORMAL LEFT ATRIUM: ENLARGED RIGHT VENTRICLE: NORMAL LEFT VENTRICLE: LEFT VENTRICULAR HYPERTROPHY TRICUSPID VALVE: MILD TRICUSPID REGURGITATION MITRAL VALVE: MILD MITRAL REGURGITATION PULMONIC VALVE: NORMAL AORTIC VALVE: NORMAL PERICARDIAL EFFUSION: NONE AORTIC ROOT: NORMAL LEFT VENTRICULAR WALL MOTION: NORMAL DOPPLER/COLOR FLOW: SEE BELOW COMMENTS: 1. NORMAL LEFT VENTRICULAR EJECTION FRACTION 55-60% WITH NORMAL WALL MOTION 2. GRADE II DIASTOLIC DYSFUNCTION 3. MILD CONCENTRIC LEFT VENTRICULAR HYPERTROPHY 4. MILD MITRAL REGURGITATION/ MILD TRICUSPID REGURGITATION 5. RIGHT VENTRICULAR SYSTOLIC PRESSURE IS NORMAL, LESS THAN 30 mmHg TECHNOLOGIST: LAURA HENLEY
[2023-12-27] MEDS: SPIRONOLACTONE 25 MG TABLET PO SCH (08:42)
[2023-12-27 10:06] VITALS: BP 114/72; TEMP 97
== END 2023-12-27 10:35 | disposition home or self-care (01) | DRG 291 ==
LOC: ER 07:00 → ERHOLD 10:34 → 3RD-ICU 11:51 → 2ND 12-26 16:00
PROVIDERS: ADMIT Hospitalist; ATTEND Hospitalist
DX: I11.0 Hypertensive heart disease with heart failure (principal); I50.33 Acute on chronic diastolic (congestive) heart failure; J96.01 Acute respiratory failure with hypoxia; Z68.41 Body mass index [BMI] 40.0-44.9, adult; I16.1 Hypertensive emergency; E66.01 Morbid (severe) obesity due to excess calories; E78.00 Pure hypercholesterolemia, unspecified; E87.6 Hypokalemia; D63.8 Anemia in other chronic diseases classified elsewhere; E11.9 Type 2 diabetes mellitus without complications; Z79.84 Long term (current) use of oral hypoglycemic drugs; Z79.02 Long term (current) use of antithrombotics/antiplatelets; Z79.899 Other long term (current) drug therapy
CPT/HCPCS: 36415; 70551; 71045; 76770; 77003; 80048; 80061; 80076; 81001; 82945; 82947; 83036; 83735; 83880; 84100; 84132; 84157; 84484; 85025; 87070; 89050; 93005; 93306; 93975; 94760; 96374; 99285; J0360; J1940